=== PATIENT | female | born 2000 | race Two or more races ===

== ENCOUNTER → 2024-03-30 | Outpatient (CLI) | payer OTHER ==
[2024-04-01 06:09] LABS: CYTOMEGALOVIRUS IgG ANTIBODY <0.60 U/mL (0.00-0.59); RUBELLA IgG FOR TORCH EVAL 1.88 index (Immune >0.99); RUBELLA IgM FOR TORCH EVAL <20.0 AU/mL (0.0-19.9); TOXOPLASMA IgG ABY <3.0 IU/mL (0.0-7.1)
[2024-04-01 14:22] LABS: HSV 1 IGG TYPE SPECIFIC < 0.90 index (<0.90); HSV 2 IGG TYPE SPECIFIC < 0.90 index (<0.90)
[2024-04-01 14:47] LABS: CYTOMEGALOVIRUS IgM ANTIBODY < 30.00 AU/mL (<30.00)
== END ==
LOC: M PLALAB 14:14
PROVIDERS: ATTEND Obstetrics & Gynecology
DX: Q02 Microcephaly (principal)

== ENCOUNTER → 2024-05-05 | Outpatient (CLI) | payer OTHER | LOC: M WHC 10:43 | PROVIDERS: ATTEND Obstetrics & Gynecology | DX: Z36.2 Encounter for other antenatal screening follow-up (principal); Z3A.34 34 weeks gestation of pregnancy ==

== ENCOUNTER → 2024-05-14 | Outpatient (REF) | payer OTHER | LOC: M PLALAB 15:37 | PROVIDERS: ATTEND Nurse Practitioner Women's Health | DX: Z36.85 Encounter for antenatal screening for Streptococcus B (principal); Z3A.35 35 weeks gestation of pregnancy ==

== ENCOUNTER → 2024-05-19 | Outpatient (CLI) | payer OTHER | LOC: M RAD 16:01 | PROVIDERS: ATTEND Nurse Practitioner Women's Health | DX: O36.5993 Maternal care for other known or suspected poor fetal growth, unspecified trimester, fetus 3 (principal); Z3A.36 36 weeks gestation of pregnancy ==

== ENCOUNTER → 2024-05-28 | Outpatient (CLI) | payer OTHER ==
[~2024-05-28] MED LIST: PRENTAB9 PO
== END ==
LOC: M WHC 13:02
PROVIDERS: ATTEND Nurse Practitioner Women's Health
DX: O36.5930 Maternal care for other known or suspected poor fetal growth, third trimester, not applicable or unspecified (principal); Z3A.37 37 weeks gestation of pregnancy

== ENCOUNTER 2024-06-08 13:00 | Inpatient (IN) | payer OTHER ==
[~2024-06-08] VITALS: Ht 170.2 cm; Wt 88.5 kg
[2024-06-08] MEDS ORDERED: METHYLERGONOVINE MALEATE 0.2MG/ML 1ML VIAL IM PRN (13:10)
[2024-06-08] MEDS ORDERED: TRANEXAMIC ACID INJection 1,000 MG in NS 100 ML IV PRN (13:10)
[2024-06-08] MEDS ORDERED: LIDOCAINE 1% MDV 20ML VIAL INFIL PRN (13:10)
[2024-06-08] MEDS: LACTATED RINGER'S 1000 ML IV STA (13:10)
[2024-06-08] MEDS ORDERED: OXYTOCIN INJ 10UNITS/ML 1ML VIAL IM PRN (13:10)
[2024-06-08] MEDS ORDERED: CARBOPROST TROMETHAMINE 250 MCG/ML AMP IM PRN (13:10)
[2024-06-08 13:22] VITALS: BP 131/77
[2024-06-08] MEDS ORDERED: PRENTAB9 PO (13:24)
[2024-06-08 13:52] LABS: HEMATOCRIT 35.9 % (36.0-47.0); HEMOGLOBIN 12.3 g/dl (12.0-15.5); MEAN CORPUSCULAR HEMOGLOBIN 30.1 pg (27.0-33.0); MEAN CORPUSCULAR HGB CONC 34.3 g/dl (32.0-36.5); PLATELET COUNT, AUTOMATED 277 10^3/uL (150-450); RED BLOOD COUNT 4.08 10^6/uL (4.00-5.40); WHITE BLOOD COUNT 14.3 10^3/uL (4.0-10.0)
[2024-06-08 15:11] LABS: HEPATITIS C VIRUS ABY INDEX < 0.02 INDEX (<0.8)
[2024-06-08 15:12] VITALS: BP 131/81
[2024-06-08] MEDS: miSOPROStol 50MCG 1/2 TABLET PO SCH (16:10)
[2024-06-08 16:16] VITALS: BP 134/78
[2024-06-08 18:15] VITALS: BP 134/90
[2024-06-08 20:17] VITALS: BP 129/80
[2024-06-09] VITALS (57 sets, daily range): BP systolic 90–159; BP diastolic 52–92; O2SAT 96–97
[2024-06-09] MEDS ORDERED: LR 500 ML IV PRN (02:25)
[2024-06-09] MEDS ORDERED: diphenhydrAMINE 50MG/ML VIAL IV PRN (02:25)
[2024-06-09] MEDS ORDERED: NALOXONE INJ 0.4MG/1ML VIAL IV PRN (02:25)
[2024-06-09] MEDS ORDERED: EPIDURAL/PCA KEYS XX PRN (02:25)
[2024-06-09] MEDS: FENTANYL/ROPIVACAINE/NACL BAG 100 ML EPIDURAL SCH (02:59)
[2024-06-09] MEDS: OXYTOCIN DRIP 30 UNITS in IV 1 EA IV SCH ×2 (03:41→14:40)
[2024-06-09] MEDS: ONDANSETRON 4MG 2ML VIAL IV PRN (07:12)
[2024-06-09] MEDS: LR 1,000 ML IV SCH (07:14)
[2024-06-09] MEDS: ePHEDrine SULFATE 25 MG/5 ML(5MG/ML) SYRINGE IVP PRN (08:28)
[2024-06-09] MEDS: OXYTOCIN DRIP 30 UNITS in IV 1 EA IV PRN (14:12)
[2024-06-09] MEDS ORDERED: DOCUSATE SODIUM 100MG CAPSULE PO PRN (14:40)
[2024-06-09] MEDS ORDERED: ANUSOL HC CREAM 30GM TOP PRN (14:40)
[2024-06-09] MEDS ORDERED: MOM 30ML SUSPENSION UDC PO PRN (14:40)
[2024-06-09] MEDS ORDERED: METHYLERGONOVINE MALEATE 0.2 MG TAB PO PRN (14:40)
[2024-06-09] MEDS ORDERED: CALCIUM CARBONATE 500 MG CHEW U/D PO PRN (14:40)
[2024-06-09] MEDS ORDERED: IBUPROFEN 600MG TAB PO PRN (14:40)
[2024-06-09] MEDS ORDERED: RHO(D) IMMUNE GLOBULIN/MALTOSE 500MCG(2500IU)/2.2ML VIAL (WINRHO) IM SCH (14:40)
[2024-06-09] MEDS: IBUPROFEN 800 MG TAB PO PRN (15:50)
[2024-06-09] MEDS: DIBUCAINE 1% OINTMENT 30GM TOP PRN (16:48)
[2024-06-09] MEDS: ACETAMINOPHEN TAB 650MG DOSE (2X325MG) PO PRN (16:49)
[2024-06-09] MEDS: ACETAMINOPHEN 500 MG TAB PO PRN (21:24)
[2024-06-10 06:00] VITALS: BP 114/70; O2SAT 100
[2024-06-10] MEDS: PRENATAL VITAMINS CHEWABLE TABLET PO SCH (09:32)
[2024-06-11] MEDS ORDERED: MEASLES,MUMPS,RUBELLA VACCINE INJ (MMR-II) SC.IMMUN ONE (09:00)
== END 2024-06-10 12:45 | disposition home or self-care (01) | DRG 807 ==
LOC: M LDI 13:00 → M OBS 06-09 16:06
PROVIDERS: ADMIT Advanced Practice Midwife; ATTEND Obstetrics & Gynecology
PROC: 3E0P7GC Introduction of Other Therapeutic Substance into Female Reproductive, Via Natural or Artificial Opening (ICD-10-PCS; 2024-06-08)
PROC: 10E0XZZ Delivery of Products of Conception, External Approach (ICD-10-PCS; principal; 2024-06-09)
PROC: 0HQ9XZZ Repair Perineum Skin, External Approach (ICD-10-PCS; 2024-06-09)
DX: O36.5930 Maternal care for other known or suspected poor fetal growth, third trimester, not applicable or unspecified (principal); Z37.0 Single live birth; Z3A.39 39 weeks gestation of pregnancy; O69.81X0 Labor and delivery complicated by cord around neck, without compression, not applicable or unspecified; O70.0 First degree perineal laceration during delivery

== ENCOUNTER → 2024-07-21 | Outpatient (REF) | payer OTHER ==
[2024-07-21 13:25] LABS: APPEARANCE, URINE HAZY (CLEAR); BACTERIA, URINE AUTO 1+ (NEGATIVE); BILIRUBIN, URINE AUTO NEGATIVE (NEGATIVE); BLOOD, URINE BLOOD NEGATIVE (NEGATIVE); COLOR, URINE YELLOW (YELLOW); GLUCOSE, URINE (UA) AUTO NEGATIVE (NEGATIVE); KETONE, URINE AUTO NEGATIVE (NEGATIVE); LEUKOCYTE ESTERASE, URINE AUTO NEGATIVE (NEGATIVE); MUCUS, URINE SMALL (NEGATIVE); NITRITE, URINE AUTO NEGATIVE (NEGATIVE); PROTEIN, URINE AUTO NEGATIVE (NEGATIVE); RBC, URINE AUTO 0 /HPF (0-3); SPECIFIC GRAVITY URINE AUTO 1.018 (1.002-1.035); SQUAMOUS EPITHELIAL CELL UR AU 5 /HPF (0-6); UROBILINOGEN, URINE AUTO 0.2 mg/dL (0.0-2.0); WBC, URINE AUTO 4 /HPF (0-3)
== END ==
LOC: M SFHCWAGY 12:54
PROVIDERS: ATTEND Obstetrics & Gynecology
DX: R30.0 Dysuria (principal)